=== PATIENT | male | born 1985 ===

== ENCOUNTER 2017-01-01 22:01 | Emergency (ER) | payer SELFPAY ==
[2017-01-01 22:08] VITALS: BP 124/80; PULSE 63; RESP 16; TEMP 99.2; O2SAT 98; BMI 26.4
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
== END 2017-01-02 00:27 | disposition home or self-care (01) ==
LOC: ED 22:01
DX: F07.81 Postconcussional syndrome (principal); M54.2 Cervicalgia